=== PATIENT | female | born 1995 | race American Indian/Alaskan Native ===

== ENCOUNTER 2017-06-24 20:23 | Inpatient (IN) | payer BC ==
[2017-06-24 20:48] VITALS: BMI 22.3
[2017-06-24] MEDS ORDERED: Lactated Ringer's 1,000 ML IV SCH (23:00)
[2017-06-24 23:27] LABS: BASO % 0.4 % (0.0-2.0); EOS # 0.1 K/uL (0.0-0.7); EOS % 0.7 % (0.0-4.0); HEMATOCRIT 30.6 % (34.0-47.0); LYMPH # 1.5 K/uL (1.0-4.3); LYMPH % 18.8 % (20.0-40.0); MEAN CORPUSCULAR HEMOGLOBIN 30.1 pg (27.0-31.0); MEAN CORPUSCULAR HGB CONC 34.6 g/dL (33.0-37.0); MONO # 0.7 K/uL (0.0-0.8); MONO % 9.2 % (0.0-10.0); NRBC % 0.1 % (0.0-2.0); RED CELL DISTRIBUTION WIDTH 13.2 % (11.5-14.5)
[2017-06-24 23:29] LABS: RBC URINE < 1 /hpf (0-3); URINE BACTERIA RARE (<OCC); URINE BILIRUBIN NEGATIVE (NEGATIVE); URINE BLOOD NEGATIVE (NEGATIVE); URINE COLOR Yellow (YELLOW); URINE GLUCOSE (UA) NORMAL (Normal); URINE KETONE NEGATIVE (NEGATIVE); URINE PROTEIN NEGATIVE (NEGATIVE); URINE UROBILINOGEN NORMAL mg/dL (0.2-1.0); WBC URINE 1 /hpf (0-5)
[2017-06-24 23:30] LABS: CHLORIDE 104 mmol/L (98-107); URINE LEUKOCYTE ESTERASE NEGATIVE Leu/uL (Negative)
[2017-06-24 23:31] LABS: SODIUM 138 mmol/L (132-148)
[2017-06-24 23:33] LABS: ALB/GLOB RATIO 1.1 (1.0-2.1); ALKALINE PHOSPHATASE 216 U/L (38-126); AST/SGOT 27 U/L (14-36); BILIRUBIN,TOTAL 0.6 mg/dL (0.2-1.3); BLOOD UREA NITROGEN 11 mg/dL (7-17); CARBON DIOXIDE 19 mmol/L (22-30); GFR AFRICAN-AMERICAN > 60; GLUCOSE,RANDOM 61 mg/dL (65-105); TOTAL PROTEIN 7.9 g/dL (6.3-8.3)
[2017-06-24 23:34] LABS: ALT/SGPT 25 U/L (9-52); CALCIUM 9.3 mg/dl (8.6-10.4)
--- NOTE | 2017-06-25 00:24 | OBHP ---
Datetime: 06/24/2017 21:17 IP Adm Impression: Term, intrauterine ; No Active Labor IP Admit Plan: Admit to unit; Initiate labor induction protocol Admit Comment, IP Provider: IUP at 40.1 weeks presents here today for IOL by her OB practitioner. De nies VB or LOF. Feels Good movements. [place]- Occasional, FHR- category 1, Cx- 10/30/-3, VTx. Assessment: IUP at 40.1wks For IOL Plan: Admit to LND. Induction of labor protocol as per Dr Ochoa. Pelvic Type - PN: Adequate Extremities - PN: Normal Abdomen - PN: Normal Back - PN: Normal Breast - PN: Normal Lungs - PN: Normal Heart - PN: Normal Thyroid - PN: Normal Neurologic - PN: Normal HEENT - PN: Normal General - PN: Normal Presentation-Admit: Vertex FHR - Baseline A Provider: 130 Membranes, Provider: Intact Gestation - Est Wks by US: 40.1 EGA AdmitDate IP: 40.0 IP Chief Complaint: Scheduled induction of labor NICHD Variability Prov Fetus A: Moderate 6-25bpm NICHD Accel Fetus A IP Provider: 15X15 FHR Category Provider Fetus A: Category I NICHD Decel Fetus A IP Provider: None Dilatation, Provider: 1 Effacement, Provider: 30 Station, Provider: -3 Genitourinary Exam: Normal DTRs - PN: Normal
[2017-06-25] MEDS ORDERED: Nalbuphine 20 mg/ml Inj (1 ml) ONE (02:13)
[2017-06-25] MEDS ORDERED: Nalbuphine 20 mg/ml Inj (1 ml) IVP PRN (02:45)
[2017-06-25] MEDS ORDERED: Bupivacaine HCl 0.25% PF (10 ml) Inj ONE (04:36)
[2017-06-25] MEDS ORDERED: Bupivacaine 0.125%/FentaNYL 200 ML EPI ONE (04:37)
--- NOTE | 2017-06-25 09:04 | OBADHP ---
Datetime: 06/24/2017 21:17 Admit Comment, IP Provider: IUP at 40.1 weeks presents here today for IOL by her OB practitioner. De nies VB or LOF. Feels Good movements. [place]- Occasional, FHR- category 1, Cx- 10/30/-3, VTx. Assessment: IUP at 40.1wks For IOL Plan: Admit to LND. Induction of labor protocol as per Dr Ochoa. Pelvic Type - PN: Adequate Extremities - PN: Normal Abdomen - PN: Normal Back - PN: Normal Breast - PN: Normal Lungs - PN: Normal Heart - PN: Normal Thyroid - PN: Normal Neurologic - PN: Normal HEENT - PN: Normal General - PN: Normal Presentation-Admit: Vertex FHR - Baseline A Provider: 130 Membranes, Provider: Intact Gestation - Est Wks by US: 40.1 IP Chief Complaint: Scheduled induction of labor NICHD Variability Prov Fetus A: Moderate 6-25bpm NICHD Accel Fetus A IP Provider: [id number] FHR Category Provider Fetus A: Category I NICHD Decel Fetus A IP Provider: None Dilatation, Provider: 1 Effacement, Provider: 30 Station, Provider: -3 Genitourinary Exam: Normal DTRs - PN: Normal EGA AdmitDate IP: 40.0 IP Adm Impression: Term, intrauterine ; No Active Labor IP Admit Plan: Admit to unit; Initiate labor induction protocol
--- NOTE | 2017-06-25 09:08 | OBDS ---
MATERNAL INFORMATION Estimated Blood Loss (ml): 300 Other Maternal Complications: rapid progression active stage with category II tracing, tachysystole Provider Comments: +2 upon pushing, good maternal effort and descent, delivered LILIANA, hand next to an terior shoulder prevented easy delivery of the anterior shoulder, posterior shoulder delivered first, arm reduced spontaneously, anterior shoulder delivered with further pushing, placenta spontaneous in tact LABOR SUMMARY EDC: 06/24/2017 00:00 LABOR INFORMATION Reason for Induction Other: term Cervical Ripening Agents: Cervidil Other Ripening Agents: cervidil out. Group B Beta Strep: Negative MEMBRANES Membranes Rupture Method: Spontaneous Amniotic Fluid Color: Clear Amniotic Fluid Amount: Small Amniotic Fluid Odor: Normal STAGES OF LABOR Stage 3 hrs: 0 Stage 3 min: 4 VAGINAL DELIVERY Episiotomy: None Laceration Type: Perineal Other Laceration: superficial Laceration Repair: Yes Laceration Repair Note: 2-0 chromic BABY A INFORMATION Delivery Date/Time: 06/25/2017 08:35 Method of Delivery: Vaginal Born in Route : No : N/A Forceps: N/A Vacuum Extraction: N/A Shoulder Dystocia : No SHOULDER DYSTOCIA BABY A Infant Delivery Date/Time: 06/25/2017 08:35 PRESENTATION/POSITION BABY A Presentation: Cephalic Cephalic Presentation: Vertex Vertex Position: Left Occipital Anterior PLACENTA INFORMATION BABY A Placenta Delivery Time : 06/25/2017 08:39 Placenta Method of Delivery: Spontaneous Placenta Status: Delivered SCORES BABY A Heart Rate 1 min: >100 bpm Resp Effort 1 min: Good Cry Reflex Irritability 1 min: Cough or Sneeze or Pulls Away Muscle Tone 1 min: Active Motion Color 1 min: Body [place], Extremities Blue Resuscitation Effort 1 min: Tactile Stimulation SCORE 1 MIN: 9 Heart Rate 5 min: >100 bpm Resp Effort 5 min: Good Cry Reflex Irritability 5 min: Cough or Sneeze or Pulls Away Muscle Tone 5 min: Active Motion Color 5 min: Body [place], Extremities Blue Resuscitation Effort 5 min: N/A SCORE 5 MIN: 9 INFANT INFORMATION BABY A Gestational Age at Delivery: 40.1 Gestational Status: Term Outcome : Liveborn Condition : Stable Sex: Female IDENTIFICATION/MEDS BABY A ID Band Number: [id number] ID Band Location: Left Leg; Left Arm Sensor Applied: Yes Sensor Number: [id number] Sensor Location : Cord Clamp Vitamin K Given : Not Given Erythromycin Given: Not Given WEIGHT/LENGTH BABY A Infant Birthweight (gms): 3045 Weight (lb): 6 Infant Weight (oz): 11 Length Inches: 19.50 Infant Length cms: 49.5 CORD INFORMATION BABY A No. Cord Vessels: 3 Nuchal Cord : N/A Infant Suction: Mouth; Nose ASSESSMENT BABY A Complications: None Physical Findings at Delivery: Within Normal Limits Infant Respirations: Appears Normal Cigarette Book Maker/ALS Called : No Care By: Nain Tafoya Transferred To: Remains with Mother
[2017-06-25] MEDS ORDERED: Erythromycin 0.5% Ophth Oint 1 APPLIC/3.5 G ONE (09:27)
[2017-06-25] MEDS ORDERED: Phytonadione 1 mg/0.5 ml Inj (Neonatal) ONE (09:28)
[2017-06-25] MEDS ORDERED: oxyCODONE 5 mg Immediate Release Tab PO PRN (18:01)
[2017-06-26 08:26] VITALS: O2SAT 100
[2017-06-26 08:32] LABS: BASO % 0.3 % (0.0-2.0); EOS # 0.1 K/uL (0.0-0.7); EOS % 0.9 % (0.0-4.0); HEMATOCRIT 27.6 % (34.0-47.0); LYMPH # 1.7 K/uL (1.0-4.3); LYMPH % 17.5 % (20.0-40.0); MEAN CELL VOLUME 86.8 fL (81.0-99.0); MEAN CORPUSCULAR HEMOGLOBIN 29.4 pg (27.0-31.0); MEAN CORPUSCULAR HGB CONC 33.8 g/dL (33.0-37.0); MEAN PLATELET VOLUME 9.4 fL (7.2-11.7); MONO # 0.8 K/uL (0.0-0.8); MONO % 7.6 % (0.0-10.0)
[2017-06-27 08:42] VITALS: BP 112/73; PULSE 89; RESP 18; TEMP 97.9
== END 2017-06-27 14:10 | disposition home or self-care (01) | DRG 775 ==
LOC: C.EROB 20:23 → C.4D 20:27 → UNDOADMIN 20:27 → C.4D 20:31 → C.4M 06-25 10:17
PROVIDERS: ADMIT Obstetrics & Gynecology; ATTEND Obstetrics & Gynecology
PROC: 10E0XZZ Delivery of Products of Conception, External Approach (ICD-10-PCS; principal; 2017-06-25)
PROC: 3E0P7GC Introduction of Other Therapeutic Substance into Female Reproductive, Via Natural or Artificial Opening (ICD-10-PCS; 2017-06-25)
DX: O62.2 Other uterine inertia (principal); Z37.0 Single live birth; Z3A.40 40 weeks gestation of pregnancy